=== PATIENT | male | born 1960 | race Caucasian/White ===

== ENCOUNTER 2019-12-31 10:55 | Inpatient (IN) ==
[2019-12-31] MEDS ORDERED: SODIUM CHLORIDE 0.9% 1000ML 1,000 ML IV SCH (11:15)
--- NOTE | 2019-12-31 11:32 | Emergency Department Note ---
History of Present Illness General Chief complaint: Abdominal Pain Stated complaint: STOMACH PAIN Time Seen by Provider: 12/31/19 11:03 History of Present Illness Maximum Pain Intensity: 5 This is a 59-year-old male that presents to the emergency department via [employer] operations staff officer escort from local [facility] where he currently resides with complaints of "abdominal pain". The patient states this past Tuesday he began with abdominal discomfort on the right side. He notes that he had associated flatus. No trauma or injury. He notes that his urine was quite dark at that time. He then was seen at the medical department/[facility]. He notes he was hydrated but the pain has persisted in the right side of the abdomen since that time. He notes a history of kidney stones but this feels quite different. No fevers or chills. Overall discomfort is a 5/10. Prior to arrival he did receive that he believes to be IM Toradol. He notes history of hernia repair. He denies any other pertinent past medical history, surgeries or allergies. Home Medications Home Medications Medication Instructions Recorded Confirmed Type duloxetine [Cymbalta] 60 mg PO DAILY 12/31/19 12/31/19 History Allergies Allergy/AdvReac Type Severity Reaction Status Date / Time No Known Allergies Allergy Unverified 12/31/19 13:03 Past Med/Surg History Medical History Kidney stones Neuropathy Surgical History H/O inguinal hernia repair H/O lithotripsy Family History Mother Diabetes Social History Preferred Language: Slovak Communication Ability: Effective Beliefs That Will Affect Care: None marital status: Single Current Living Situation: Other Current Living Situation Comment: [facility] Other Information That Helps Us Care for You: No Feels Safe at Home: Yes Safety Concerns: Feels Safe At This Time Smoking Status: Former smoker Age Quit Using Tobacco: 44 ; packs per day: 1 ; Years Smoked: 20 ; Hx Alcohol Use: No Hx Substance Use: No Physical Exam Vital Signs Vital Signs - 24 hr 12/31/19 11:00 12/31/19 11:30 12/31/19 12:00 Temperature 36.7 C Temperature Source Oral Pulse Rate 98 H 87 69 Pulse Rate from SpO2 Sensor 85 70 Pulse Rhythm Regular Pulse Strength Normal Respiratory Rate 16 20 20 Respiratory Effort / Characteristics Non-Labored Respiratory Depth Normal Respiratory Pattern Regular Blood Pressure 125/86 130/89 127/88 Blood Pressure Mean 99 96 94 Blood Pressure Position Sitting Pulse Oximetry 95 95 97 Oxygen Delivery Method Room Air Room Air Room Air Sepsis Recent Fever Within 48 Hours No Sepsis Action Taken by Nursing No Action Required 12/31/19 12:25 12/31/19 12:30 12/31/19 13:00 Temperature Temperature Source Pulse Rate 66 71 64 Pulse Rate from SpO2 Sensor 66 71 64 Pulse Rhythm Pulse Strength Respiratory Rate 19 20 19 Respiratory Effort / Characteristics Respiratory Depth Respiratory Pattern Blood Pressure 130/86 132/88 133/89 Blood Pressure Mean 93 95 96 Blood Pressure Position Pulse Oximetry 97 97 97 Oxygen Delivery Method Room Air Room Air Room Air Sepsis Recent Fever Within 48 Hours Sepsis Action Taken by Nursing VITAL SIGNS - Vital signs and nursing notes were reviewed. Stable and afebrile. GENERAL - 59-year-old male appearing his stated age who is in no acute distress. Communicates well with provider and answers questions appropriately. SKIN - Without rashes. HEAD - NC/AT. EYES - PERRL with EOMI bilaterally. Sclera anicteric. EARS - No deformities of external structures noted on gross examination bilaterally. NOSE - Midline and without cyanosis. No epistaxis or purulent drainage noted. MOUTH/OROPHARYNX - Without perioral cyanosis. NECK - Neck with FROM. Supple to palpation. No lymphadenopathy noted. No nuchal rigidity. LUNGS - Chest wall symmetric without accessory muscle use, intercostals retractions, or central cyanosis. Normal vesicular breath sounds CTA B/L. No wheezes, rales, or rhonchi appreciated. CARDIAC - RRR with S1/S2. No murmur, rubs, or gallops appreciated. ABDOMEN - Abdominal contour normal without pulsations or visible masses. BS normoactive all four quadrants. No palpable masses, hepatosplenomegaly, or ascites noted. RUQ/R flank TTP just inferior to right lateral rib region. EXTREMITIES - No clubbing or peripheral cyanosis. No pretibial edema present. +5/5 strength noted in UE/LE bilaterally. NEUROLOGIC - Cranial nerves II through XII grossly intact. PSYCH - A&O, and cooperates fully with examiner. Pt is very pleasant and inte racts well with examiner. Course Administered Medications Heparin Sodium (Porcine) (Heparin Sodium (Porcine)) 5,000 units SQ Q8 CHACHA Stop: 01/30/20 15:59 Last Admin: 12/31/19 17:30 Dose: 5,000 units Documented by: [id number] Cosigned by: [id number] Potassium Chloride/Dextrose/Sod Cl (D5nss + 20meq Kcl) 20 meq in 1,000 mls @ 125 mls/hr IV .Q8H CHACHA Stop: 01/30/20 13:59 Last Admin: 12/31/19 17:30 Dose: 125 mls/hr Documented by: [id number] Cefoxitin Sodium 2,000 mg/ (Dextrose) 60 mls @ 100 mls/hr IV Q6H CHACHA Stop: 01/10/20 17:59 Last Infusion: 12/31/19 18:23 Dose: 0 mls/hr Documented by: [id number] Admin: 12/31/19 17:30 Dose: 100 mls/hr Documented by: [id number] Discontinued Medications Sodium Chloride (Nss 1000ml) 1,000 mls @ 999 mls/hr IV .Q1H1M CHACHA Stop: 12/31/19 12:15 Last Infusion: 12/31/19 12:45 Dose: 0 mls/hr Documented by: [id number] Admin: 12/31/19 11:26 Dose: 999 mls/hr Documented by: [id number] Ioversol (Optiray 320 100ml) 94 ml IV ONCE PRN PRN Reason: Interaction Checking Stop: 01/04/20 12:20 Last Admin: 12/31/19 12:22 Dose: 94 ml Documented by: [id number] Medical Decision Making Laboratory Data Result diagrams: 12/31/19 11:20 12/31/19 11:20 Lab Results 12/31/19 12/31/19 12/31/19 Range/Units 11:20 11:20 11:20 WBC 9.30 (4.8-10.8) K/uL RBC 5.06 (4.7-6.1) M/uL Hgb 16.2 (14.0-18.0) g/dL Hct 46.0 (42-52) % MCV 90.9 (80-100) fL MCH 32.0 (25-34) pg MCHC 35.2 (32-36) g/dL RDW Std Deviation 42.9 (36.4-46.3) fL RDW Coeff of Mc 13.0 (11.5-14.5) % Plt Count 163 (130-400) K/uL MPV 10.7 H (7.4-10.4) fL Immature Gran % (Auto) 0.3 % Neut % (Auto) 76.3 % Lymph % (Auto) 11.2 % [place] % (Auto) 10.2 % Eos % (Auto) 1.9 % Baso % (Auto) 0.1 % Immature Gran # (Auto) 0.03 H (0.00-0.02) K/uL Neut # (Auto) 7.09 H (1.4-6.5) K/uL Lymph # (Auto) 1.04 L (1.2-3.4) K/uL [place] # (Auto) 0.95 H (0.11-0.59) K/uL Eos # (Auto) 0.18 (0-0.5) K/uL Baso # (Auto) 0.01 (0-0.2) K/uL Sodium 135 L (136-145) mmol/L Potassium 4.2 (3.5-5.1) mmol/L Chloride 104 (98-107) mmol/L Carbon Dioxide 26 (21-32) mmol/L Anion Gap 5.0 (3-11) BUN 11 (7-18) mg/dl Creatinine 0.95 (0.6-1.4) mg/dl Est Cr Clr Drug Dosing 94.6 ml/min Est GFR ( Amer) 101.1 Est GFR (Non-Af Amer) 87.3 BUN/Creatinine Ratio 12.1 (10-20) Glucose 100 H (70-99) mg/dl Calcium 8.9 (8.5-10.1) mg/dl Magnesium 2.3 (1.8-2.4) mg/dl Ferritin (8-388) ng/ml Total Bilirubin 1.1 H (0.2-1) mg/dl AST 54 H (15-37) U/L ALT 122 H (12-78) U/L Alkaline Phosphatase 71 (45-117) U/L Total Creatine Kinase 717 H (39-308) U/L Troponin I (0-0.045) ng/ml C-Reactive Protein (0-0.29) mg/dl Total Protein 7.9 (6.4-8.2) gm/dl Albumin 3.5 (3.4-5.0) gm/dl Globulin 4.4 H (2.5-4.0) gm/dl Albumin/Globulin Ratio 0.8 L (0.9-2) Lipase 117 (73-393) U/L Urine Color Urine Appearance (Clear) Urine pH (4.5-7.5) Ur Specific [place] (1.000-1.030) Urine Protein (Negative) Urine Glucose (UA) (Negative) Urine Ketones (Negative) Urine Blood (Negative) Urine Nitrite (Negative) Urine Bilirubin (Negative) Urine Urobilinogen (Negative) Ur Leukocyte Esterase (Negative) Hep Bs Antigen Neg (Neg) 12/31/19 12/31/19 12/31/19 Range/Units 11:20 11:20 11:24 WBC (4.8-10.8) K/uL RBC (4.7-6.1) M/uL Hgb (14.0-18.0) g/dL Hct (42-52) % MCV (80-100) fL MCH (25-34) pg MCHC (32-36) g/dL RDW Std Deviation (36.4-46.3) fL RDW Coeff of Mc (11.5-14.5) % Plt Count (130-400) K/uL MPV (7.4-10.4) fL Immature Gran % (Auto) % Neut % (Auto) % Lymph % (Auto) % [place] % (Auto) % Eos % (Auto) % Baso % (Auto) % Immature Gran # (Auto) (0.00-0.02) K/uL Neut # (Auto) (1.4-6.5) K/uL Lymph # (Auto) (1.2-3.4) K/uL [place] # (Auto) (0.11-0.59) K/uL Eos # (Auto) (0-0.5) K/uL Baso # (Auto) (0-0.2) K/uL Sodium (136-145) mmol/L Potassium (3.5-5.1) mmol/L Chloride (98-107) mmol/L Carbon Dioxide (21-32) mmol/L Anion Gap (3-11) BUN (7-18) mg/dl Creatinine (0.6-1.4) mg/dl Est Cr Clr Drug Dosing ml/min Est GFR ( Amer) Est GFR (Non-Af Amer) BUN/Creatinine Ratio (10-20) Glucose (70-99) mg/dl Calcium (8.5-10.1) mg/dl Magnesium (1.8-2.4) mg/dl Ferritin 184.6 (8-388) ng/ml Total Bilirubin (0.2-1) mg/dl AST (15-37) U/L ALT (12-78) U/L Alkaline Phosphatase (45-117) U/L Total Creatine Kinase (39-308) U/L Troponin I 0.019 (0-0.045) ng/ml C-Reactive Protein 8.16 H (0-0.29) mg/dl Total Protein (6.4-8.2) gm/dl Albumin (3.4-5.0) gm/dl Globulin (2.5-4.0) gm/dl Albumin/Globulin Ratio (0.9-2) Lipase (73-393) U/L Urine Color Yellow Urine Appearance Clear (Clear) Urine pH 6.0 (4.5-7.5) Ur Specific [place] 1.018 (1.000-1.030) Urine Protein Negative (Negative) Urine Glucose (UA) Negative (Negative) Urine Ketones Trace H (Negative) Urine Blood Negative (Negative) Urine Nitrite Negative (Negative) Urine Bilirubin Negative (Negative) Urine Urobilinogen Negative (Negative) Ur Leukocyte Esterase Negative (Negative) Hep Bs Antigen (Neg) Imaging Data Radiologist's Impression: CT abd pelvis IV con only CLINICAL HISTORY: 59 years-old Male presenting with generalized abdominal pain, dark urine. TECHNIQUE: Multidetector CT of the abdomen and pelvis was performed after the administration of intravenous contrast. IV contrast: 94 mL of Optiray 320. One or more dose lowering techniques were used consistent with the principles of ALARA (as low as reasonably achievable), including automatic exposure control, mA or kV adjustment to individual patient size, and/or use of iterative reconstruction. COMPARISON: None. CT DOSE (mGy.cm): The estimated cumulative dose is 792.73 mGycm. FINDINGS: Instrument And Control Technician topogram: Unremarkable. Lung bases: Normal heart size. No pericardial or pleural effusion. No focal infiltrate or nodule at the lung bases. Liver: Normal morphology. Heterogeneous parenchymal enhancement with periportal edema. Patent hepatic vasculature. Biliary: No intrahepatic or extrahepatic biliary ductal dilatation. Biliary biliary fat infiltration at the level of the liver hilum and along the portal triad. No abnormal gallbladder distention, however, mild pericholecystic fat infiltration. Pancreas: Normal. Spleen: Normal. Adrenal glands: Normal. Kidneys and ureters: Several renal cysts noted, including on the left a 3 cm cyst with focal limited thin mural calcification consistent with a minimally complex cyst. Punctate nonobstructing left renal calculus. No hydronephrosis. Ureters nondistended. Bladder: Incompletely evaluated secondary to underdistention. No bladder calculi . Pelvic organs: Prostate and seminal vesicles normal. Bowel: Mild diverticulosis of the proximal to mid sigmoid colon without wall thickening or pericolonic inflammatory change. The appendix is normal. No bowel obstruction. Fluid noted along the descending portion of the duodenum. Peritoneal cavity: Trace fluid in the pelvis. Trace retroperitoneal fluid as mentioned in the periduodenal region. No free intraperitoneal gas. Lymph nodes: No enlarged lymph nodes in the abdomen or pelvis. Vasculature: Aorta and IVC patent and normal in caliber. Abdominal wall: Normal. Musculoskeletal: Bilateral pars defects of L5. No significant anterolisthesis. IMPRESSION: 1. Heterogeneous parenchymal enhancement of the liver with periportal edema and evidence of inflammatory changes or edema at the liver hilum. These findings could relate to the presence of underlying hepatitis or aggressive volume resuscitation. Correlate with liver function tests. 2. Fluid along the portal triad and periduodenal region may also relate to the above-mentioned diagnoses. Alternative etiologies include cholangitis or duodenitis. 3. Mild diverticulosis coli. No evidence of diverticulitis. 4. Nonobstructing punctate left renal calculus. No hydronephrosis. ACT 112: Negative or not required by law. Electronically signed by: Gil Deluna M.D. 12/31/2019 12:34 PM MDM Narrative Patient was seen and evaluated as above in room B3. Review was performed of nursing notes and vital signs. After obtaining a thorough history and physical examination the above work up was performed. He presents to us today with right upper quadrant/right sided flank pain with associated vomiting a few days ago. He presents from [facility]. The patient is nontoxic on examination and yields stable vital signs. With this presentation liver/gallbladder etiologies are favored. There is no leukocytosis or concerning anemia. There is mild transaminitis with associated T bili of 1.1. Urinalysis does not suggest infection. Hepatitis panel pending. A CT scan was obtained of the abdomen and there is heterogeneous parenchymal enhancement of the liver with periportal edema and evidence of inflammatory changes or edema at the liver hilum. This could suggest underlying hepatitis versus aggressive hydration but he only received 1 L of fluid here therefore do not suspect aggressive hydration. There is also note of fluid along the portal triad and periduodenal region which may be related to hepatitis versus hydration versus cholangitis or duodenitis. Given the patient's presentation I felt reasonable to discuss the case with the [facility] where he was receiving medical care. I discussed the case with Dr. Kirkpatrick. It was felt that further evaluation and management in the inpatient setting would be warranted. I believe this is reasonable. Case discussed with the hospitalist. Please refer to further documentation regarding his stay. While in the department, I personally reevaluated the patient several times and each time the patient was found to be resting comfortably. The patient was educated upon management, educated upon todays findings/results, and discussed benefit versus risk of admission and he was amenable to staying. Case was discussed with the attending physician. GCS: 15 In the evaluation and treatment of this patient, the following differential diagnoses were considered: ASC, NH, Pneumonia, GERD, Cholecystitis, Ascending Cholangitis, Cholydocholithiasis, Bowel Obstruction, PE, Amongst Others. Impression & Plan Right upper quadrant abdominal pain, Transaminitis Discharge Plan Visit Data *Final* Discharge Date/Time: 12/31/19 14:59 Chief Complaint: Abdominal Pain Stated Complaint: STOMACH PAIN ED Provider: Fili Vega ED Midlevel Provider: Valerio Lemon Discharge Problem: Right upper quadrant abdominal pain, Transaminitis Patient Disposition: Admitted As Inpatient Condition: Good Discharge Instructions Interventions: ED Discharge Assessment Last Done: 12/31/19 14:59
[2019-12-31 11:36] LABS: Basophils # (auto) 0.01 K/uL (0-0.2); Basophils % (auto) 0.1 %; Eosinophils # (auto) 0.18 K/uL (0-0.5); Eosinophils % (auto) 1.9 %; Hemoglobin 16.2 g/dL (14.0-18.0); Immature Granulocytes # (auto) 0.03 K/uL (0.00-0.02); Immature Granulocytes % (auto) 0.3 %; Lymphocytes # (auto) 1.04 K/uL (1.2-3.4); Lymphocytes % (auto) 11.2 %; Mean Corpuscular Hgb Conc 35.2 g/dL (32-36); Mean Corpuscular Volume 90.9 fL (80-100); Mean Platelet Volume 10.7 fL (7.4-10.4); Monocytes # (auto) 0.95 K/uL (0.11-0.59); Monocytes % (auto) 10.2 %; Neutrophils # (auto) 7.09 K/uL (1.4-6.5); Neutrophils % (auto) 76.3 %; Platelet Count 163 K/uL (130-400); RDW Standard Deviation 42.9 fL (36.4-46.3); Red Blood Count 5.06 M/uL (4.7-6.1)
[2019-12-31 11:37] LABS: Appearance Urine Clear (Clear); Bilirubin Urine Negative (Negative); Blood Urine Negative (Negative); Color Urine Yellow; Glucose Urine UA Negative (Negative); Ketones Urine Trace (Negative); Leukocyte Esterase Urine Negative (Negative); Nitrite Urine Negative (Negative); Protein Urine Negative (Negative); Specific Gravity Urine 1.018 (1.000-1.030); Urobilinogen Urine Negative (Negative)
[2019-12-31 11:53] LABS: Albumin Level 3.5 gm/dl (3.4-5.0); BUN Creatinine Ratio 12.1 (10-20); Calcium 8.9 mg/dl (8.5-10.1); Creatinine Clr Calc Pharmacy 94.6 ml/min; Est GFR (African American) 101.1; Est GFR (Non-African American) 87.3; Magnesium 2.3 mg/dl (1.8-2.4); Potassium 4.2 mmol/L (3.5-5.1)
[2019-12-31 11:55] LABS: Albumin Globulin Ratio 0.8 (0.9-2); Bilirubin,Total 1.1 mg/dl (0.2-1); Globulin 4.4 gm/dl (2.5-4.0); Total Protein 7.9 gm/dl (6.4-8.2)
[2019-12-31] MEDS ORDERED: IOVERSOL 100ml IV PRN (12:21)
--- NOTE | 2019-12-31 12:35 | CT Scan Report ---
CT abd pelvis IV con only CLINICAL HISTORY: 59 years-old Male presenting with generalized abdominal pain, dark urine. TECHNIQUE: Multidetector CT of the abdomen and pelvis was performed after the administration of intra venous contrast. IV contrast: 94 mL of Optiray 320. One or more dose lowering techniques were used co nsistent with the principles of ALARA (as low as reasonably achievable), including automatic exposure control, mA or kV adjustment to individual patient size, and/or use of iterative reconstruction. COMPARISON: None. CT DOSE (mGy.cm): The estimated cumulative dose is 792.73 mGycm. FINDINGS: Molded Goods Operator topogram: Unremarkable. Lung bases: Normal heart size. No pericardial or pleural effusion. No focal infiltrate or nodule at t he lung bases. Liver: Normal morphology. Heterogeneous parenchymal enhancement with periportal edema. Patent hepatic vasculature. Biliary: No intrahepatic or extrahepatic biliary ductal dilatation. Biliary biliary fat infiltration at the level of the liver hilum and along the portal triad. No abnormal gallbladder distention, howev er, mild pericholecystic fat infiltration. Pancreas: Normal. Spleen: Normal. Adrenal glands: Normal. Kidneys and ureters: Several renal cysts noted, including on the left a 3 cm cyst with focal limited thin mural calcification consistent with a minimally complex cyst. Punctate nonobstructing left renal calculus. No hydronephrosis. Ureters nondistended. Bladder: Incompletely evaluated secondary to underdistention. No bladder calculi. Pelvic organs: Prostate and seminal vesicles normal. Bowel: Mild diverticulosis of the proximal to mid sigmoid colon without wall thickening or pericoloni c inflammatory change. The appendix is normal. No bowel obstruction. Fluid noted along the descending portion of the duodenum. Peritoneal cavity: Trace fluid in the pelvis. Trace retroperitoneal fluid as mentioned in the periduo denal region. No free intraperitoneal gas. Lymph nodes: No enlarged lymph nodes in the abdomen or pelvis. Vasculature: Aorta and IVC patent and normal in caliber. Abdominal wall: Normal. Musculoskeletal: Bilateral pars defects of L5. No significant anterolisthesis. IMPRESSION: 1. Heterogeneous parenchymal enhancement of the liver with periportal edema and evidence of inflamma tory changes or edema at the liver hilum. These findings could relate to the presence of underlying h epatitis or aggressive volume resuscitation. Correlate with liver function tests. 2. Fluid along the portal triad and periduodenal region may also relate to the above-mentioned diagn oses. Alternative etiologies include cholangitis or duodenitis. 3. Mild diverticulosis coli. No evidence of diverticulitis. 4. Nonobstructing punctate left renal calculus. No hydronephrosis. ACT 112: Negative or not required by law. Electronically signed by: Gil Deluna M.D. 12/31/2019 12:34 PM
--- NOTE | 2019-12-31 14:00 | History & Physical Report ---
Date of Service December 31, 2019 Assessment & Plan (1) RUQ abdominal pain: RUQ abd pain, abnormal LFTs, post-prandial symptoms, and gall bladder u/s findings (I ordered RUQ us after my admission assessment) are all concerning for biliary etiology for his presentation. Will keep NPO, provide IV fluids, and have [place] [facility] [place] consult. Acute hepatitis profile was sent in ER and is currently pending. Repeat labs in am including LFTs. Defer antibiotic selection to general surgery to cover for acute cholecystitis. (2) Abnormal LFTs: See discussion above. I believe abnormal LFTs are likely due to acute cholecystitis. Repeat LFTs in am. If t. bili, alk phos, etc rise consider intra-op cholangiogram to rule out choledocholithiasis vs MRCP. Acute hepatitis profile is pending. Rarely can cymbalta cause abnormal LFTs - hold as precautionary measure. (3) Neuropathy: Hold cymbalta for now. (4) DVT prophylaxis: Due to immobility from handcuff/ankle cuffs will provide heparin 5000 TID. GI proph - pepcid IV bid. IVF - D5NS w/ KCL at 125 cc/hr. Pain control - morphine prn. History of Present Illness Chief Complaint: abdominal pain Primary Care Provider: [facility] 59yo male - [facility] inmate - with h/o kidney stones and neuropathy who presents with 1 week of RUQ and epigastric abdominal pain. Initially pain was intermittent and occasionally post-prandial. Pain in the last 24 hours is now constant. Had 1 episode of nonbilious emesis a few days ago. He has been able to continue eating although this makes the pain worse. Some pain has radiated to the flank on the right and back. No chest pain. No dyspnea or cough. No diarrhea. No blood per rectum. Denies fevers, chills or myalgias or obvious sick contacts. Allergies Allergy/AdvReac Type Severity Reaction Status Date / Time No Known Allergies Allergy Unverified 12/31/19 13:03 Home Medications Home Medications Medication Instructions Recorded Confirmed Type duloxetine [Cymbalta] 60 mg PO DAILY 12/31/19 12/31/19 History Past Med/Surg History Medical History Kidney stones Neuropathy Surgical History H/O inguinal hernia repair H/O lithotripsy Family History Mother Diabetes Social History Preferred Language: Italian Communication Ability: Effective Beliefs That Will Affect Care: None marital status: Single Current Living Situation: Other Current Living Situation Comment: [facility] Other Information That Helps Us Care for You: No Feels Safe at Home: Yes Safety Concerns: Feels Safe At This Time Smoking Status: Former smoker Age Quit Using Tobacco: 44 ; packs per day: 1 ; Years Smoked: 20 ; Hx Alcohol Use: No Hx Substance Use: No Review of Systems Constitutional: no fever, no chills, no fatigue and no anorexia Eyes: no worsening vision Ear, Nose, Mouth, Throat: no nasal congestion and no sore throat Respiratory: no cough, no chest congestion and no dyspnea Cardiovascular: no chest pain Gastrointestinal: as per Subjective / HPI, + abdominal pain, + nausea and + vomiting; no constipation, no diarrhea/loose stools and no blood in stools Genitourinary: no dysuria Musculoskeletal: as per Subjective / HPI and + back pain; no joint pain Integumentary: no rash Neurologic: no loss of sensation Psychiatric: no anxiety Endocrine: denies diabetes Hematologic / Lymphatic: no easy bleeding Physical Exam Constitutional: well developed and well nourished; no acute distress and no altered mental status Eyes: + anicteric sclerae and PERRL ENMT: Mouth: no oropharynx abnormality and no oral mucosal abnormality Neck: trachea midline, no thyromegaly Respiratory: no respiratory distress Auscultation: + rales (RLL); no wheezes Cardiovascular: Rate/Rhythm: regular rate and regular rhythm Heart Sounds: normal S1 and normal S2; no murmur Vessels: posterior tibial pulses present and dorsalis pedis pulses present; no JVD Extremities: no edema Gastrointestinal (Abdomen): Inspection/Auscultation: normal bowel sounds; abdomen not distended Percussion/Palpation: + abdomen tender (RUQ with deep palpation) and abdomen soft; no guarding and no hepatosplenomegaly Musculoskeletal: no cyanosis or clubbing, extremities motor strength 5/5 Skin: no rashes, warm and dry Neurologic: deep tendon reflexes 2+ bilaterally and moves all extremities; no focal motor deficits Psychiatric: A+Ox3, euthymic affect Lymphatic: no cervical lymphadenopathy Results & Data Results & Data ([facility]) Vital Signs (Past 12 Hours) Vital Signs Temp Pulse Resp BP Pulse Ox 12/31/19 13:00 64 19 133/89 97 12/31/19 12:30 71 20 132/88 97 12/31/19 12:25 66 19 130/86 97 12/31/19 12:00 69 20 127/88 97 12/31/19 11:30 87 20 130/89 95 12/31/19 11:00 36.7 C 98 H 16 125/86 95 Laboratory Results Laboratory Results - last 24 hr 12/31/19 12/31/19 12/31/19 11:20 11:20 11:20 WBC 9.30 RBC 5.06 Hgb 16.2 Hct 46.0 MCV 90.9 MCH 32.0 MCHC 35.2 RDW Std Deviation 42.9 RDW Coeff of Mc 13.0 Plt Count 163 MPV 10.7 H Immature Gran % (Auto) 0.3 Neut % (Auto) 76.3 Lymph % (Auto) 11.2 [place] % (Auto) 10.2 Eos % (Auto) 1.9 Baso % (Auto) 0.1 Immature Gran # (Auto) 0.03 H Neut # (Auto) 7.09 H Lymph # (Auto) 1.04 L [place] # (Auto) 0.95 H Eos # (Auto) 0.18 Baso # (Auto) 0.01 Sodium 135 L Potassium 4.2 Chloride 104 Carbon Dioxide 26 Anion Gap 5.0 BUN 11 Creatinine 0.95 Est Cr Clr Drug Dosing 94.6 Est GFR ( Amer) 101.1 Est GFR (Non-Af Amer) 87.3 BUN/Creatinine Ratio 12.1 Glucose 100 H Calcium 8.9 Magnesium 2.3 Ferritin Total Bilirubin 1.1 H AST 54 H ALT 122 H Alkaline Phosphatase 71 Total Creatine Kinase 717 H Troponin I C-Reactive Protein Total Protein 7.9 Albumin 3.5 Globulin 4.4 H Albumin/Globulin Ratio 0.8 L Lipase 117 Urine Color Urine Appearance Urine pH Ur Specific [place] Urine Protein Urine Glucose (UA) Urine Ketones Urine Blood Urine Nitrite Urine Bilirubin Urine Urobilinogen Ur Leukocyte Esterase Hepatitis A IgM Ab Hep Bs Antigen Neg Hep B Core IgM Ab Hepatitis C Ab (EIA) Hep C Ab Signal/Cutoff 12/31/19 12/31/19 12/31/19 11:20 11:20 11:20 WBC RBC Hgb Hct MCV MCH MCHC RDW Std Deviation RDW Coeff of Mc Plt Count MPV Immature Gran % (Auto) Neut % (Auto) Lymph % (Auto) [place] % (Auto) Eos % (Auto) Baso % (Auto) Immature Gran # (Auto) Neut # (Auto) Lymph # (Auto) [place] # (Auto) Eos # (Auto) Baso # (Auto) Sodium Potassium Chloride Carbon Dioxide Anion Gap BUN Creatinine Est Cr Clr Drug Dosing Est GFR ( Amer) Est GFR (Non-Af Amer) BUN/Creatinine Ratio Glucose Calcium Magnesium Ferritin 184.6 Total Bilirubin AST ALT Alkaline Phosphatase Total Creatine Kinase Troponin I 0.019 C-Reactive Protein 8.16 H Total Protein Albumin Globulin Albumin/Globulin Ratio Lipase Urine Color Urine Appearance Urine pH Ur Specific [place] Urine Protein Urine Glucose (UA) Urine Ketones Urine Blood Urine Nitrite Urine Bilirubin Urine Urobilinogen Ur Leukocyte Esterase Hepatitis A IgM Ab Pending Hep Bs Antigen Hep B Core IgM Ab Pending Hepatitis C Ab (EIA) Pending Hep C Ab Signal/Cutoff Pending 12/31/19 11:24 WBC RBC Hgb Hct MCV MCH MCHC RDW Std Deviation RDW Coeff of Mc Plt Count MPV Immature Gran % (Auto) Neut % (Auto) Lymph % (Auto) [place] % (Auto) Eos % (Auto) Baso % (Auto) Immature Gran # (Auto) Neut # (Auto) Lymph # (Auto) [place] # (Auto) Eos # (Auto) Baso # (Auto) Sodium Potassium Chloride Carbon Dioxide Anion Gap BUN Creatinine Est Cr Clr Drug Dosing Est GFR ( Amer) Est GFR (Non-Af Amer) BUN/Creatinine Ratio Glucose Calcium Magnesium Ferritin Total Bilirubin AST ALT Alkaline Phosphatase Total Creatine Kinase Troponin I C-Reactive Protein Total Protein Albumin Globulin Albumin/Globulin Ratio Lipase Urine Color Yellow Urine Appearance Clear Urine pH 6.0 Ur Specific [place] 1.018 Urine Protein Negative Urine Glucose (UA) Negative Urine Ketones Trace H Urine Blood Negative Urine Nitrite Negative Urine Bilirubin Negative Urine Urobilinogen Negative Ur Leukocyte Esterase Negative Hepatitis A IgM Ab Hep Bs Antigen Hep B Core IgM Ab Hepatitis C Ab (EIA) Hep C Ab Signal/Cutoff Diagnostic Findings CT abd/pelvis - IMPRESSION: 1. Heterogeneous parenchymal enhancement of the liver with periportal edema and evidence of inflammatory changes or edema at the liver hilum. These findings could relate to the presence of underlying hepatitis or aggressive volume resuscitation. Correlate with liver function tests. 2. Fluid along the portal triad and periduodenal region may also relate to the above-mentioned diagnoses. Alternative etiologies include cholangitis or duodenitis. 3. Mild diverticulosis coli. No evidence of diverticulitis. 4. Nonobstructing punctate left renal calculus. No hydronephrosis. EKG - my reading - NSR, left axis deviation, no ST changes Code Status & VTE Plan Code Status full VTE Prophylaxis Plan VTE Prophylaxis will be ordered: Yes PG Care Time/CCT Total # of Minutes Spent Total Time Spent with Patient: Total time spent is greater than 50% in coordination of care (as documented) at patient's floor/unit and/or counseling patient: Coding Level of Care Code 48635 OBS Care - Level 2 Diagnoses RUQ abdominal pain R10.11 Abnormal LFTs R94.5 Neuropathy G62.9 DVT prophylaxis Z29.9
[2019-12-31 14:44] LABS: C Reactive Protein 8.16 mg/dl (0-0.29); Ferritin 184.6 ng/ml (8-388)
--- NOTE | 2019-12-31 15:21 | Ultrasound Report ---
US gallbladder CLINICAL HISTORY: 59 years-old Male presenting with abnormal LFTs, RUQ abd pain. TECHNIQUE: Real-time grayscale and limited color Doppler ultrasound imaging of the abdomen limited to the right upper quadrant was performed. COMPARISON: CT from 12/31/2019 performed earlier today. FINDINGS: Pancreas: Largely obscured due to overlying bowel gas. Liver: Mildly hyperechogenic parenchyma, although the right hemidiaphragm remains visible, likely ind icating mild steatosis. The liver measures 20.9 cm in maximal sagittal dimension. No sonographic evid ence of hepatic mass. Main portal vein patent with normal directional flow. Biliary: No intrahepatic biliary ductal dilatation. Common bile duct measures up to 4 mm in diameter. Gallbladder: Gallbladder wall thickening. The gallbladder is distended with echogenic material compri sing sludge and gallstones. There is no pathologic distention of the gallbladder. Sonographic Colin' s sign negative. Right kidney: Upper pole cysts noted. No hydronephrosis. Ascites: None. Other: None. IMPRESSION: 1. Gallbladder wall thickening with extensive gallbladder sludge and gallstones. Equivocal findings for cholecystitis. Wall thickening may be secondary. A secondary etiology would be favored based on f indings on recent CT scan. If there is concern for cholecystitis, HIDA scan could be obtained. 2. Mild hepatic steatosis may be present. ACT 112: Negative or not required by law. Electronically signed by: Gil Deluna M.D. 12/31/2019 3:20 PM
--- NOTE | 2019-12-31 15:31 | XRay Report ---
XR chest 2V PA/lateral CLINICAL HISTORY: 59 years-old Male presenting with RLL rales, chest pain for 5 days. TECHNIQUE: PA and lateral views of the chest were obtained. COMPARISON: None. FINDINGS: Cardiomediastinal silhouette normal. Lungs and pleural spaces clear. Degenerative changes of the thor acic spine. Upper abdomen normal. IMPRESSION: 1. No acute cardiopulmonary disease. ACT 112: Negative or not required by law. Electronically signed by: Gil Deluna M.D. 12/31/2019 3:30 PM
[2019-12-31] MEDS ORDERED: MoRPHine SULFATE 2 MG/ML CARP IV PRN (15:39)
[2019-12-31] MEDS ORDERED: ONDANSETRON INJ 2 MG/ML 2 ML VIAL IV PRN (15:39)
--- NOTE | 2019-12-31 16:27 | Electrocardiogram Report ---
Test Reason : Blood Pressure : / mmHG Vent. Rate : 071 BPM Atrial Rate : 071 BPM P-R Int : 186 ms QRS Dur : 098 ms QT Int : 400 ms P-R-T Axes : -10 -22 020 degrees QTc Int : 434 ms Normal sinus rhythm Normal ECG No previous ECGs available Confirmed by River Rogers ([id number]) on 12/31/2019 4:26:34 PM Referred By: [facility] Confirmed By:River Rogers
--- NOTE | 2019-12-31 16:44 | Surgery Consultation ---
Date of Consultation December 31, 2019 Assessment & Plan (1) Right upper quadrant abdominal pain: Cholelithiasis, cholecystitis. Will start on IV abx and plan for laparoscopic cholecystectomy tomorrow. Also, slight elevation of bili/AST/ALT with normal alk phos and lipase. Repeat labs in AM, may consider cholangiogram. Dr Davis- examined pt in room- agree with above pt with acute cholecystitis- for lap cholecystectomy tomorrow IV atbx History of Present Illness Attending Physician: Donnie Craig History of Present Illness 59 y/o male inmate with several years intermittent postprandial pain RUQ now with more persistent symptoms for the past week. Had vomited initially, has been able to tolerate some food the past few days. Has had inguinal hernia repairs, no other abdominal surgery. Allergies Allergy/AdvReac Type Severity Reaction Status Date / Time No Known Allergies Allergy Unverified 12/31/19 13:03 Home Medications Home Medications Medication Instructions Recorded Confirmed Type duloxetine [Cymbalta] 60 mg PO DAILY 12/31/19 12/31/19 History Patient History Medical History Kidney stones Neuropathy Surgical History H/O inguinal hernia repair H/O lithotripsy Family History Mother Diabetes Social History Preferred Language: Scottish Communication Ability: Effective Beliefs That Will Affect Care: None marital status: Single Current Living Situation: [facility] Other Information That Helps Us Care for You: No Feels Safe at Home: Yes Safety Concerns: Feels Safe At This Time Smoking Status: Former smoker Age Quit Using Tobacco: 44 ; packs per day: 1 ; Years Smoked: 20 ; Hx Alcohol Use: No Hx Substance Use: No Review of Systems Constitutional: no fever and no chills Gastrointestinal: + abdominal pain, + nausea and + vomiting Physical Exam Constitutional: WD/WN, vitals as above Respiratory: normal respiratory effort and + respiratory distress Cardiovascular: Rate/Rhythm: regular rate Gastrointestinal (Abdomen): Inspection/Auscultation: abdomen not distended Percussion/Palpation: + abdomen tender (mild RUQ) and abdomen soft Results & Data Vital Signs (Past 12 Hours) Vital Signs Temp Pulse Pulse Resp BP BP Pulse Ox 12/31/19 15:43 36.7 C 66 18 135/84 97 12/31/19 14:59 66 18 132/86 97 12/31/19 14:43 66 18 132/86 97 12/31/19 13:00 64 19 133/89 97 12/31/19 12:30 71 20 132/88 97 12/31/19 12:25 66 19 130/86 97 12/31/19 12:00 69 20 127/88 97 12/31/19 11:30 87 20 130/89 95 12/31/19 11:00 36.7 C 98 H 16 125/86 95 PG Care Time/CCT Total # of Minutes Spent Total Time Spent with Patient: Total time spent is greater than 50% in coordination of care (as documented) at patient's floor/unit and/or counseling patient: Coding Level of Care Code 97200 Inpt Consult Level 3 Diagnoses Right upper quadrant abdominal pain R10.11
[2019-12-31] MEDS: D5NSS + 20MEQ KCL 20 MEQ/1,000 ML BAG IV SCH (17:30)
[2019-12-31] MEDS: cefOXitin 2,000 MG in DEXTROSE 5% 50 ML IV SCH (17:30)
[2019-12-31] MEDS: HEPARIN SOD 5,000 UNIT/0.5 ML VIAL SQ SCH ×2 (17:30→22:29)
[2019-12-31] MEDS: FAMOTIDINE 20 MG in SYRINGE 3 ML IV SCH (20:31)
[2020-01-01] MEDS: cefOXitin 2,000 MG in DEXTROSE 5% 50 ML IV SCH ×3 (00:12→15:19)
[2020-01-01] MEDS: D5NSS + 20MEQ KCL 20 MEQ/1,000 ML BAG IV SCH ×3 (00:12→15:19)
[2020-01-01] MEDS: HEPARIN SOD 5,000 UNIT/0.5 ML VIAL SQ SCH ×2 (02:11→15:20)
[2020-01-01 04:50] LABS: Basophils # (auto) 0.01 K/uL (0-0.2); Basophils % (auto) 0.1 %; Eosinophils # (auto) 0.26 K/uL (0-0.5); Eosinophils % (auto) 3.6 %; Hematocrit (blood only) 39.4 % (42-52); Hemoglobin 13.5 g/dL (14.0-18.0); Immature Granulocytes # (auto) 0.02 K/uL (0.00-0.02); Immature Granulocytes % (auto) 0.3 %; Lymphocytes # (auto) 0.98 K/uL (1.2-3.4); Lymphocytes % (auto) 13.7 %; Mean Corpuscular Hemoglobin 31.5 pg (25-34); Mean Corpuscular Hgb Conc 34.3 g/dL (32-36); Mean Corpuscular Volume 91.8 fL (80-100); Mean Platelet Volume 10.7 fL (7.4-10.4); Monocytes # (auto) 0.79 K/uL (0.11-0.59); Monocytes % (auto) 11.1 %; Neutrophils # (auto) 5.08 K/uL (1.4-6.5); Neutrophils % (auto) 71.2 %; Platelet Count 152 K/uL (130-400); RDW Coefficient of Variation 13.1 % (11.5-14.5); RDW Standard Deviation 43.6 fL (36.4-46.3); Red Blood Count 4.29 M/uL (4.7-6.1); White Blood Count 7.14 K/uL (4.8-10.8)
[2020-01-01 05:11] LABS: Albumin Level 2.7 gm/dl (3.4-5.0); Calcium 8.5 mg/dl (8.5-10.1); Creatinine Clr Calc Pharmacy 98.8 ml/min; Est GFR (African American) 106.5; Est GFR (Non-African American) 91.9; Potassium 4.3 mmol/L (3.5-5.1)
[2020-01-01 05:45] LABS: Albumin Globulin Ratio 0.8 (0.9-2); Bilirubin,Total 0.7 mg/dl (0.2-1); Globulin 3.6 gm/dl (2.5-4.0); Total Protein 6.3 gm/dl (6.4-8.2)
[2020-01-01] MEDS: FAMOTIDINE 20 MG in SYRINGE 3 ML IV SCH (08:17)
--- NOTE | 2020-01-01 09:58 | Anesthesiology Consultation ---
Date of Service January 01, 2020 Assessment & Plan (1) Encounter for pre-operative examination: Chart Review Chart Review: Acceptable Risk for Surgery and Patient NOT seen in Pre Admission Testing Consults Requested none ASA ASA2 Proposed Anesthesia Anesthesia Type: General Risk / Benefits Reviewed With: PT / POA / Parent / Guardian, Accepts Plan and Informed Consent Obtained History Surgery Operation Date: 01/01/20 07:00 Proposed Procedures p Laparoscopic Cholecystectomy - Giovanni Davis MD, FACS Height/Weight Height: 6 ft 1 in Weight: 93.5 kg Allergies Allergy/AdvReac Type Severity Reaction Status Date / Time No Known Allergies Allergy Unverified 12/31/19 13:03 Medications Home Medications Medication Instructions Recorded Confirmed Last Taken duloxetine [Cymbalta] 60 mg PO DAILY 12/31/19 12/31/19 12/31/19 Active Medications Generic Name Dose Route Start Last Admin Trade Name Freq PRN Reason Stop Dose Admin Heparin Sodium (Porcine) 5,000 units 12/31/19 16:00 01/01/20 02:11 Heparin Sodium (Porcine) SQ 01/30/20 15:59 Not Given Q8 CHACHA Potassium Chloride/Dextrose/Sod Cl 20 meq in 1,000 mls @ 125 mls/hr 12/31/19 14:00 01/01/20 08:21 D5nss + 20meq Kcl IV 01/30/20 13:59 125 mls/hr .Q8H CHACHA Administration Famotidine 20 mg/ Syringe 5 mls @ 2.5 mls/min 12/31/19 21:00 01/01/20 08:17 IV 01/30/20 20:59 2.5 mls/min BID CHACHA Administration Cefoxitin Sodium 2,000 mg/ 60 mls @ 100 mls/hr 12/31/19 18:00 01/01/20 05:54 Dextrose IV 01/10/20 17:59 Infused Q6H CHACHA Infusion Morphine Sulfate 2 mg 12/31/19 15:39 12/31/19 22:34 Morphine Sulfate IV 01/14/20 15:38 2 mg Q3H PRN Administration Pain NPO Date Last Intake of Fluids: 12/31/19 Time Last Intake of Fluids: 09:00 Last Intake of Fluids Comment: Yesterday morning. Date Last Intake of Solids: 12/30/19 Time Last Intake of Solids: 17:00 Past Medical History Medical History Kidney stones Neuropathy Exercise / Class Metabolic Activity II 4-5 Yardwork/Stairs/Walk up hill Negative for chest pain or shortness of breath. Past Family History Family History Mother Diabetes Past Surgical History Surgical History H/O inguinal hernia repair H/O lithotripsy Past Anesthesia History No Hx of Anesthesia Complications History of PONV No Hx of PONV and No Hx of Motion Sickness Social History Smoking Status: Former smoker Do You Dip or Chew Tobacco: No Hx Alcohol Use: No Hx Substance Use: No Review of Systems Patient denies active symptoms of GERD. Physical Exam Vital Signs Last Vital Signs Temp 37.4 C 01/01/20 10:26 Pulse 64 01/01/20 10:26 Resp 18 01/01/20 10:26 BP 125/91 01/01/20 10:26 Pulse Ox 96 01/01/20 10:26 Constitutional not obese ENMT Mouth: no TMJ abnormality and oral opening not small Thyromental Distance: > or= 3.5 Finger Breadths Mallampati Class: I Mouth / Teeth: 1. Bridge Neck normal visual inspection; neck extension not limited Respiratory normal respiratory effort Auscultation: lungs clear to auscultation bilaterally Cardiovascular Rate/Rhythm: regular rate and regular rhythm Heart Sounds: no murmur Neurologic moves all extremities Psychiatric Orientation: alert and oriented x 3 Testing Laboratory Results 01/01/20 04:26 01/01/20 04:26 Urine Color Yellow 12/31/19 11:24 Urine Appearance Clear (Clear) 12/31/19 11:24 Urine pH 6.0 (4.5-7.5) 12/31/19 11:24 Ur Specific [place] 1.018 (1.000-1.030) 12/31/19 11:24 Urine Protein Negative (Negative) 12/31/19 11:24 Urine Glucose (UA) Negative (Negative) 12/31/19 11:24 Urine Ketones Trace (Negative) H 12/31/19 11:24 Urine Nitrite Negative (Negative) 12/31/19 11:24 Ur Leukocyte Esterase Negative (Negative) 12/31/19 11:24 Electrocardiogram Date: 12/31/19 Findings: + NSR @ (71)
[2020-01-01] MEDS ORDERED: DEXAMETHASONE SOD INJ 4 MG/ML VIAL ONE (10:08)
[2020-01-01] MEDS ORDERED: GLYCOPYRROLATE 0.2 MG/ML VIAL ONE ×2 (10:08→12:29)
[2020-01-01] MEDS ORDERED: LIDOCAINE HCL 2% 2 ML VIAL/AMP(20MG/ML) INFIL ONE (10:08)
[2020-01-01] MEDS ORDERED: fentaNYL citrate 100 MCG/2 ML VIAL ONE ×2 (10:08→13:14)
[2020-01-01] MEDS ORDERED: ONDANSETRON INJ 2 MG/ML 2 ML VIAL ONE (10:08)
[2020-01-01] MEDS ORDERED: NEOSTIGMINE METHYLSULFATE 5 MG/5 ML SYR ONE (10:08)
[2020-01-01] MEDS ORDERED: PROPOFOL IV EMULSION 10 MG/ML 20 ML VIAL IV ONE (10:08)
[2020-01-01] MEDS ORDERED: MIDAZOLAM HCL 1 MG/ML 2ML VIAL ONE (10:08)
[2020-01-01] MEDS ORDERED: LARYING-O-JET KIT (LTA) ONE (10:13)
[2020-01-01] MEDS ORDERED: SUCCINYLCHOLINE CHLORIDE 20 MG/ML 10 ML VIAL ONE (10:13)
[2020-01-01] MEDS ORDERED: DexMEDEtomidine HCL IV 100 MCG/ML VIAL ONE (10:16)
[2020-01-01] MEDS ORDERED: BUPIVACAINE 0.5 % 5 MG/1 ML MPF 30ML VIAL ONE (10:27)
--- NOTE | 2020-01-01 10:43 | History & Physical Bridge Note ---
Date of Service January 01, 2020 History & Physical Bridge Note I have examined the patient, reviewed the History & Physical and in the interval since the performance of the History & Physical I have noted the following changes of clinical significance: no changes noted
[2020-01-01] MEDS ORDERED: CONRAY 60% 50 ML VIAL ONE (10:56)
[2020-01-01] MEDS ORDERED: ONDANSETRON INJ 2 MG/ML 2 ML VIAL IV PRN (11:00)
[2020-01-01] MEDS ORDERED: PROMETHAZINE HCL 12.5 MG in SODIUM CHLORIDE 0.9% 50 ML IV PRN ×2 (11:00→14:06)
[2020-01-01] MEDS ORDERED: ePHEDrine sulfate 50 MG/ML AMP IV PRN (11:00)
[2020-01-01] MEDS ORDERED: ATROPINE SULFATE 0.1 MG/ML 10ML SYR IV PRN (11:00)
[2020-01-01] MEDS ORDERED: fentaNYL citrate 100 MCG/2 ML VIAL IV PRN (11:00)
[2020-01-01] MEDS ORDERED: HYDROmorphone INJ 1 MG/ML SYRINGE IV PRN (11:00)
[2020-01-01] MEDS ORDERED: ePHEDrine sulfate 50 MG/ML SYR ONE (12:27)
[2020-01-01] MEDS ORDERED: ROCURONIUM BROMIDE 10 MG/ML 5 ML VIAL ONE (12:27)
[2020-01-01] MEDS ORDERED: ACETAMINOPHEN 1,000 MG/100 ML VIAL IV STA (12:42)
--- NOTE | 2020-01-01 12:42 | Post Operative Brief Note ---
PG Immediate Post Op with CF Date of Surgery January 01, 2020 Pre & Post Diagnosis Operation Date: 01/01/20 07:00 Pre-Op Diagnosis: Cholelithiasis, cholecystitis Post-Op Diagnosis: Cholelithiasis, cholecystitis- acute and chronic I identified the patient and participated in the time-out.: Yes Procedure Operation Date: 01/01/20 07:00 Actual Procedures p Laparoscopic Cholecystectomy(Not Applicable) - Giovanni Davis MD, FACS Surgeon Giovanni Davis MD, FACS Deli Manager Ailyn Glynn Estimated Blood Loss 20 Findings Consistent with Post-Op Diagnosis Specimens Specimen Description: Permanent: A. Gallbladder and contents Drains Bk-Zhao Drain (15F Round)
--- NOTE | 2020-01-01 12:59 | Operative Report (OR) ---
DATE OF OPERATION: 01/01/2020 NAME OF OPERATION: Laparoscopic cholecystectomy. PREOPERATIVE DIAGNOSIS: Acute cholecystitis. POSTOPERATIVE DIAGNOSIS: Acute cholecystitis with chronic cholecystitis. STAFF SURGEON: Giovanni Davis MD. ERP IMPLEMENTATION CONSULTANT: Kathryn Glynn PA-C. ANESTHESIA: General. DESCRIPTION OF PROCEDURE: The patient was brought in the operating room and placed on the operating table in supine position. His abdomen was prepped and draped in usual fashion. My business support assistant helped with prepping, draping, removal of the gallbladder and closure of the wounds. 0.5% plain Marcaine was used to anesthetize all incisions. Incision was made just above the umbilicus, carrying dissection down into the abdomen, placing a Veress needle, producing pneumoperitoneum. An 11 mm port was placed at this level and then under visualization, three 5 mm ports were placed, 1 cephalad and 2 laterally. Gallbladder was grasped and retracted. It was acutely inflamed. There were adhesions to the gallbladder. These were taken down bluntly and sharply. There was significant inflammation at the casa hepatis. Dissection was carried out identifying the cystic duct and cystic artery. These were clipped and transected. The gallbladder was extremely friable. We did have some bile and stone spillage, which was irrigated and aspirated. The gallbladder was dissected away from the liver bed consistent with acute and chronic cholecystitis. Gallbladder was placed in an Endobag. The subhepatic space and surrounding area were irrigated and aspirated. A 15 round Bk-Zhao drain placed through the lateral 5 mm port site into the subhepatic space, secured to the skin using 3-0 nylon suture. It was placed to suction bulb. All ports were removed. The pneumoperitoneum was reduced. The fascia at the umbilicus was closed using 0 PDS suture. Skin was reapproximated using 5-0 Prolene suture. The patient was transferred to recovery room in stable condition. I attest to the content of the Intraoperative Record and any orders documented therein. Any exception s are noted below.
--- NOTE | 2020-01-01 13:42 | Anesthesiology Progress Note ---
Date of Service January 01, 2020 Anesthesia Post Procedure Vital Signs Vital Signs: Temp Pulse Pulse Pulse Resp BP BP 01/01/20 13:35 64 16 124/73 01/01/20 13:25 59 L 14 126/80 01/01/20 13:18 36.1 C L 59 L 23 131/80 01/01/20 10:26 37.4 C 64 18 125/91 01/01/20 08:00 36.8 C 72 18 133/82 12/31/19 23:16 36.7 C 66 18 132/77 12/31/19 15:43 36.7 C 66 18 135/84 12/31/19 14:59 66 18 132/86 12/31/19 14:43 66 18 132/86 Pulse Ox 01/01/20 13:35 96 01/01/20 13:25 96 01/01/20 13:18 97 01/01/20 10:26 96 01/01/20 08:00 97 12/31/19 23:16 96 12/31/19 15:43 97 12/31/19 14:59 97 12/31/19 14:43 97 Pain Intensity Abdomen: Pain Intensity: 4 Transfer of Care Handoff Completed per policy Notes Mental Status: alert / awake / arousable and participated in evaluation Patient Amnestic to Procedure: Yes Nausea / Vomiting: adequately controlled Pain: adequately controlled Airway Patency, RR, SpO2: stable & adequate BP & HR: stable & adequate Hydration State: stable & adequate Anesthetic Complications: no major complications apparent and Pt Satisfied with anesthetic care
[2020-01-01] MEDS ORDERED: PROMETHAZINE HCL 25 MG in SODIUM CHLORIDE 0.9% 50 ML IV PRN (14:06)
[2020-01-01] MEDS ORDERED: MoRPHine SULFATE 2 MG/ML CARP IV PRN (14:06)
[2020-01-01] MEDS ORDERED: HYDROCODONE/ACETAMOPHEN 5/325MG TAB PO PRN (14:06)
[2020-01-01] MEDS: SODIUM CHLORIDE 0.9% 1000ML 1,000 ML IV SCH (14:30)
[2020-01-01] MEDS: HYDROCODONE/ACETAMOPHEN 5/325MG TAB PO PRN ×2 (17:33→23:54)
--- NOTE | 2020-01-01 17:43 | Hospitalist Progress Note ---
Date of Service January 01, 2020 Assessment & Plan (1) Acute and chronic cholecystitis: Presented with acutely worsening on chronic RUQ abd pain. Chronic pain for 5 years, then had acute RUQ abd pain, abnormal LFTs, post-prandial symptoms, and gall bladder u/s findings consistent with acute calculous cholecystitis Started on IV cefoxitin Now s/p lap ralph by Surgery on 12/31 Doing very well -on reg diet -continue pain control, bowel regimen, IVFs -continue abx -post-op management as per Surgery -f/u pathology (2) Cholelithiasis: as above (3) Abnormal LFTs: See discussion above. I believe abnormal LFTs are likely due to acute cholecystitis. Trending downward after likely passage of stone on day of admission Acute hepatitis profile is pending Hep B neg, Hep A and C pending -ok to restart Cymbalta (4) Neuropathy: restart cymbalta (5) DVT prophylaxis: SCDs Dispo-much improved, needs continued stay for recovery from cholecystectomy, then back to group home Admission and Anticipated Discharge Date Admission Date: December 31, 2019 Subjective Pt feeling so much better since cholecystectomy today. Reports the constant nagging pain he has had for the last 5 years is now gone. He tolerated a regular diet and denies nausea. No chest pain or SOB. No headache. Is making urine. No flatus or BM yet. Review of Systems Review of Systems: All systems reviewed & are unremarkable except as noted in HPI & below Physical Exam Constitutional: WD/WN, vitals as above Eyes: + anicteric sclerae ENMT: external ear and nose normal, oropharynx normal Neck: trachea midline, no thyromegaly Respiratory: normal respiratory effort, lungs clear to auscultation Cardiovascular: RRR, no murmur, no edema Chest (Breasts): Chest: normal inspection of chest Gastrointestinal (Abdomen): Inspection/Auscultation: normal bowel sounds; + abdomen abnormal to inspection (dressings in place on abd are c/d/i) and abdomen not distended Percussion/Palpation: abdomen soft; abdomen nontender and no guarding Musculoskeletal: Extremities: extremities normal to inspection; no cyanosis and no clubbing Skin: no rashes, warm and dry Neurologic: moves all extremities and awake; no focal motor deficits Psychiatric: A+Ox3, euthymic affect Lymphatic: no lymphedema Results & Data Results & Data ([facility]) Vital Signs (Past 12 Hours) Vital Signs Temp Pulse Pulse Pulse Resp BP Pulse Ox 01/01/20 17:37 36.7 C 86 18 122/81 93 01/01/20 15:48 36.4 C L 57 L 16 135/81 95 01/01/20 14:50 36.5 C 75 18 118/73 94 01/01/20 14:20 36.5 C 62 16 124/74 95 01/01/20 14:05 36.6 C 61 18 124/74 95 01/01/20 13:50 36.8 C 65 19 122/73 95 01/01/20 13:35 64 16 124/73 96 01/01/20 13:25 59 L 14 126/80 96 01/01/20 13:18 36.1 C L 59 L 23 131/80 97 01/01/20 10:26 37.4 C 64 18 125/91 96 01/01/20 08:00 36.8 C 72 18 133/82 97 Laboratory Results 01/01/20 01/01/20 12/31/19 Range/Units 04:26 04:26 17:45 WBC 7.14 (4.8-10.8) K/uL RBC 4.29 L (4.7-6.1) M/uL Hgb 13.5 L (14.0-18.0) g/dL Hct 39.4 L (42-52) % MCV 91.8 (80-100) fL MCH 31.5 (25-34) pg MCHC 34.3 (32-36) g/dL RDW Std Deviation 43.6 (36.4-46.3) fL RDW Coeff of Mc 13.1 (11.5-14.5) % Plt Count 152 (130-400) K/uL MPV 10.7 H (7.4-10.4) fL Immature Gran % (Auto) 0.3 % Neut % (Auto) 71.2 % Lymph % (Auto) 13.7 % [place] % (Auto) 11.1 % Eos % (Auto) 3.6 % Baso % (Auto) 0.1 % Immature Gran # (Auto) 0.02 (0.00-0.02) K/uL Neut # (Auto) 5.08 (1.4-6.5) K/uL Lymph # (Auto) 0.98 L (1.2-3.4) K/uL [place] # (Auto) 0.79 H (0.11-0.59) K/uL Eos # (Auto) 0.26 (0-0.5) K/uL Baso # (Auto) 0.01 (0-0.2) K/uL Sodium 140 (136-145) mmol/L Potassium 4.3 (3.5-5.1) mmol/L Chloride 110 H (98-107) mmol/L Carbon Dioxide 25 (21-32) mmol/L Anion Gap 5.0 (3-11) BUN 11 (7-18) mg/dl Creatinine 0.91 (0.6-1.4) mg/dl Est Cr Clr Drug Dosing 98.8 ml/min Est GFR ( Amer) 106.5 Est GFR (Non-Af Amer) 91.9 BUN/Creatinine Ratio 12.0 (10-20) Glucose 103 H (70-99) mg/dl Calcium 8.5 (8.5-10.1) mg/dl Total Bilirubin 0.7 (0.2-1) mg/dl AST 29 (15-37) U/L ALT 79 H (12-78) U/L Alkaline Phosphatase 55 (45-117) U/L Total Protein 6.3 L D (6.4-8.2) gm/dl Albumin 2.7 L (3.4-5.0) gm/dl Globulin 3.6 (2.5-4.0) gm/dl Albumin/Globulin Ratio 0.8 L (0.9-2) Nasal Screen MRSA (PCR) Negative (Negative) PG Care Time/CCT Total # of Minutes Spent Total Time Spent with Patient: Total time spent is greater than 50% in coord ination of care (as documented) at patient's floor/unit and/or counseling patient: Coding Level of Care Code 84207 Subseq Hosp Care Lvl 2 Diagnoses Acute and chronic cholecystitis K81.2 Cholelithiasis K80.20 Abnormal LFTs R94.5 Neuropathy G62.9 DVT prophylaxis Z29.9
[2020-01-01] MEDS: DOCUSATE SODIUM/SENNA 50/8.6MG TAB PO SCH (21:15)
[2020-01-02 02:55] LABS: Hepatitis A Antibody IgM NON-REACTIVE (NON-REACTIVE); Hepatitis B Core Antibody IgM NON-REACTIVE (NON-REACTIVE)
[2020-01-02] MEDS: SODIUM CHLORIDE 0.9% 1000ML 1,000 ML IV SCH (03:09)
[2020-01-02 05:49] LABS: Basophils # (auto) 0.01 K/uL (0-0.2); Basophils % (auto) 0.1 %; Eosinophils # (auto) 0.03 K/uL (0-0.5); Eosinophils % (auto) 0.4 %; Hematocrit (blood only) 38.4 % (42-52); Hemoglobin 13.3 g/dL (14.0-18.0); Immature Granulocytes # (auto) 0.02 K/uL (0.00-0.02); Immature Granulocytes % (auto) 0.2 %; Lymphocytes # (auto) 0.94 K/uL (1.2-3.4); Lymphocytes % (auto) 11.2 %; Mean Corpuscular Hemoglobin 31.9 pg (25-34); Mean Corpuscular Hgb Conc 34.6 g/dL (32-36); Mean Corpuscular Volume 92.1 fL (80-100); Mean Platelet Volume 10.9 fL (7.4-10.4); Monocytes % (auto) 9.5 %; Neutrophils # (auto) 6.62 K/uL (1.4-6.5); Neutrophils % (auto) 78.6 %; Platelet Count 164 K/uL (130-400); RDW Coefficient of Variation 12.9 % (11.5-14.5); RDW Standard Deviation 43.5 fL (36.4-46.3); Red Blood Count 4.17 M/uL (4.7-6.1); White Blood Count 8.42 K/uL (4.8-10.8)
[2020-01-02 06:17] LABS: Albumin Level 2.7 gm/dl (3.4-5.0); Bilirubin Direct 0.2 mg/dl (0-0.2); Calcium 8.4 mg/dl (8.5-10.1); Creatinine Clr Calc Pharmacy 86.2 ml/min; Est GFR (African American) 91.1; Est GFR (Non-African American) 78.6; Potassium 4.4 mmol/L (3.5-5.1)
[2020-01-02 06:20] LABS: Albumin Globulin Ratio 0.7 (0.9-2); Bilirubin,Total 0.6 mg/dl (0.2-1); Globulin 3.7 gm/dl (2.5-4.0); Phosphorus 3.3 mg/dl (2.5-4.9); Total Protein 6.4 gm/dl (6.4-8.2)
--- NOTE | 2020-01-02 07:14 | Surgery Progress Note ---
Date of Service January 02, 2020 Assessment & Plan (1) Status post laparoscopic cholecystectomy: Patient is status post laparoscopic cholecystectomy with lysis of adhesions He had a significant acute and chronic inflammation with chronic adhesions Advance diet and activity Continue IV antibiotics for now, will discharge on Cipro Leave drain until Tuesday or next Tuesday Likely discharge tomorrow Results & Data Vital Signs (Past 12 Hours) Vital Signs Temp Pulse Resp BP Pulse Ox 01/02/20 07:09 36.5 C 59 L 16 127/75 95 01/01/20 23:00 36.8 C 85 19 126/80 93 PG Care Time/CCT Total # of Minutes Spent Total Time Spent with Patient: Total time spent is greater than 50% in coordina tion of care (as documented) at patient's floor/unit and/or counseling patient: Coding Level of Care Code None Diagnoses Status post laparoscopic cholecystectomy Z90.49
[2020-01-02] MEDS: DOCUSATE SODIUM/SENNA 50/8.6MG TAB PO SCH ×2 (07:34→21:40)
[2020-01-02] MEDS: DULOXETINE HCL 60 MG CAP PO SCH (07:34)
[2020-01-02] MEDS: MAGNESIUM HYDROXIDE SUSP 30 ML UDC PO SCH ×2 (09:18→21:40)
--- NOTE | 2020-01-02 16:43 | Hospitalist Progress Note ---
Date of Service January 02, 2020 Assessment & Plan (1) Acute and chronic cholecystitis: Presented with acutely worsening on chronic RUQ abd pain. Chronic pain for 5 years, then had acute RUQ abd pain, abnormal LFTs, post-prandial symptoms, and gall bladder u/s findings consistent with acute calculous cholecystitis Now s/p lap ralph by Surgery on 12/31, doing very well post-op RASHAUN drain remains in place -on reg diet and tolerating well, passing flatus, no BM yet -continue pain control, bowel regimen, can dc IVFs -continue abx with Cefoxitin -post-op management as per Surgery -f/u pathology -continued stay (2) Cholelithiasis: as above (3) Abnormal LFTs: See discussion above. I believe abnormal LFTs are likely due to acute calculous cholecystitis Acute hepatitis profile is negative LFs all normal now (4) Neuropathy: Continue cymbalta (5) DVT prophylaxis: SCDs Dispo-much improved, needs continued stay for recovery from cholecystectomy, then back to skilled nursing likely tomorrow Admission and Anticipated Discharge Date Admission Date: January 01, 2020 Subjective Pt reports feeling great today. He is eating regular food, no abd pain except occasionally at incision and RASHAUN drain sites. No nausea. He is passing flatus but no BM. He ambulated in the halls today. Denies chest pain or SOB Review of Systems Review of Systems: All systems reviewed & are unremarkable except as noted in HPI & below Physical Exam Constitutional: WD/WN, vitals as above Eyes: + anicteric sclerae Neck: trachea midline, no thyromegaly Respiratory: normal respiratory effort, lungs clear to auscultation Cardiovascular: RRR, no murmur, no edema Chest (Breasts): Chest: normal inspection of chest Gastrointestinal (Abdomen): Inspection/Auscultation: normal bowel sounds; + abdomen abnormal to inspection (dressings in place on abd are c/d/i,RASHAUN drain with serosang drainage) and abdomen not distended Percussion/Palpation: abdomen soft; abdomen nontender and no guarding Musculoskeletal: Extremities: extremities normal to inspection; no cyanosis and no clubbing Skin: no rashes, warm and dry Neurologic: moves all extremities and awake; no focal motor deficits Psychiatric: A+Ox3, euthymic affect Lymphatic: no lymphedema Results & Data Results & Data ([facility]) Vital Signs (Past 12 Hours) Vital Signs Temp Pulse Pulse Resp BP Pulse Ox 01/02/20 15:10 36.7 C 69 16 127/79 93 01/02/20 07:09 36.5 C 59 L 16 127/75 95 Laboratory Results 01/02/20 01/02/20 12/31/19 Range/Units 05:33 05:33 11:20 WBC 8.42 (4.8-10.8) K/uL RBC 4.17 L (4.7-6.1) M/uL Hgb 13.3 L (14.0-18.0) g/dL Hct 38.4 L (42-52) % MCV 92.1 (80-100) fL MCH 31.9 (25-34) pg MCHC 34.6 (32-36) g/dL RDW Std Deviation 43.5 (36.4-46.3) fL RDW Coeff of Mc 12.9 (11.5-14.5) % Plt Count 164 (130-400) K/uL MPV 10.9 H (7.4-10.4) fL Immature Gran % (Auto) 0.2 % Neut % (Auto) 78.6 % Lymph % (Auto) 11.2 % [place] % (Auto) 9.5 % Eos % (Auto) 0.4 % Baso % (Auto) 0.1 % Immature Gran # (Auto) 0.02 (0.00-0.02) K/uL Neut # (Auto) 6.62 H (1.4-6.5) K/uL Lymph # (Auto) 0.94 L (1.2-3.4) K/uL [place] # (Auto) 0.80 H (0.11-0.59) K/uL Eos # (Auto) 0.03 (0-0.5) K/uL Baso # (Auto) 0.01 (0-0.2) K/uL Sodium 139 (136-145) mmol/L Potassium 4.4 (3.5-5.1) mmol/L Chloride 108 H (98-107) mmol/L Carbon Dioxide 26 (21-32) mmol/L Anion Gap 5.0 (3-11) BUN 9 (7-18) mg/dl Creatinine 1.03 (0.6-1.4) mg/dl Est Cr Clr Drug Dosing 86.2 ml/min Est GFR ( Amer) 91.1 Est GFR (Non-Af Amer) 78.6 BUN/Creatinine Ratio 9.0 L (10-20) Glucose 106 H (70-99) mg/dl Calcium 8.4 L (8.5-10.1) mg/dl Phosphorus 3.3 (2.5-4.9) mg/dl Total Bilirubin 0.6 (0.2-1) mg/dl Direct Bilirubin 0.2 (0-0.2) mg/dl AST 23 (15-37) U/L ALT 65 (12-78) U/L Alkaline Phosphatase 52 (45-117) U/L Total Protein 6.4 (6.4-8.2) gm/dl Albumin 2.7 L (3.4-5.0) gm/dl Globulin 3.7 (2.5-4.0) gm/dl Albumin/Globulin Ratio 0.7 L (0.9-2) Hepatitis A IgM Ab NON-REACTIVE (NON-REACTIVE) Hep B Core IgM Ab NON-REACTIVE (NON-REACTIVE) Hepatitis C Ab (EIA) NON-REACTIVE (NON-REACTIVE) Hep C Ab Signal/Cutoff 0.02 (<1.00) PG Care Time/CCT Total # of Minutes Spent Total Time Spent with Patient: Total time spent is greater than 50% in coordination of care (as documented) at patient's floor/unit and/or counseling patient: Coding Level of Care Code 34365 Subseq Hosp Care Lvl 2 Diagnoses Acute and chronic cholecystitis K81.2 Cholelithiasis K80.20 Abnormal LFTs R94.5 Neuropathy G62.9 DVT prophylaxis Z29.9
[2020-01-03] MEDS: DULOXETINE HCL 60 MG CAP PO SCH (07:37)
[2020-01-03] MEDS: MAGNESIUM HYDROXIDE SUSP 30 ML UDC PO SCH (07:37)
[2020-01-03] MEDS: DOCUSATE SODIUM/SENNA 50/8.6MG TAB PO SCH (07:37)
--- NOTE | 2020-01-03 07:37 | Surgery Progress Note ---
Date of Service January 03, 2020 Assessment & Plan (1) Status post laparoscopic cholecystectomy: Patient is doing well tolerating his diet He did very his tape burn and we are now using paper tape His abdomen is soft Drainage is serous [facility] He should continue on ciprofloxacin for 5 days and I suspect the present will determine what pain medication who he will receive We will remove the drain on Tuesday in our office Results & Data Vital Signs (Past 12 Hours) Vital Signs Temp Pulse Resp BP Pulse Ox 01/02/20 23:30 36.7 C 69 18 130/81 96 PG Care Time/CCT Total # of Minutes Spent Total Time Spent with Patient: Total time spent is greater than 50% in coordination of care (as documented) at patient's floor/unit and/or counseling patient: Coding Level of Care Code None Diagnoses Status post laparoscopic cholecystectomy Z90.49
--- NOTE | 2020-01-03 13:38 | Discharge Summary ---
Date of Service January 03, 2020 Admission HPI Per Admitting Provider 59yo male - [facility] inmate - with h/o kidney stones and neuropathy who presents with 1 week of RUQ and epigastric abdominal pain. Initially pain was intermittent and occasionally post-prandial. Pain in the last 24 hours is now constant. Had 1 episode of nonbilious emesis a few days ago. He has been able to continue eating although this makes the pain worse. Some pain has radiated to the flank on the right and back. No chest pain. No dyspnea or cough. No diarrhea. No blood per rectum. Denies fevers, chills or myalgias or obvious sick contacts. Principal Diagnosis Acute on chronic cholecystitis Discharge Exam Constitutional WD/WN, vitals as above Eyes + anicteric sclerae Neck trachea midline, no thyromegaly Respiratory normal respiratory effort, lungs clear to auscultation Cardiovascular RRR, no murmur, no edema Chest (Breasts) Chest: normal inspection of chest Gastrointestinal (Abdomen) Inspection/Auscultation: normal bowel sounds; + abdomen abnormal to inspection (dressings in place on abd are c/d/i,RASHAUN drain with serosang drainage) and abdomen not distended Percussion/Palpation: abdomen soft; abdomen nontender and no guarding Musculoskeletal Extremities: extremities normal to inspection; no cyanosis and no clubbing Skin no rashes, warm and dry Neurologic moves all extremities and awake; no focal motor deficits Psychiatric A+Ox3, euthymic affect Lymphatic no lymphedema Discharge Data Allergies Allergy/AdvReac Type Severity Reaction Status Date / Time No Known Allergies Allergy Unverified 12/31/19 13:03 Consultations 12/31/19 13:56 ED Decision to Admit Stat 12/31/19 15:43 Consult General Surgery Routine Procedures Performed Operation Date: 01/01/20 07:00 Actual Procedures p Laparoscopic Cholecystectomy(Not Applicable) - Giovanni Davis MD, FACS Ordered Studies 12/31/19 11:10 CT abd pelvis IV con only Stat 12/31/19 13:56 US gallbladder Stat CXR Hospital Course (1) Acute and chronic cholecystitis: Presented with acutely worsening on chronic RUQ abd pain. Chronic pain for 5 years, then had acute RUQ abd pain, abnormal LFTs, post-prandial symptoms, and gall bladder u/s findings consistent with acute calculous cholecystitis Now s/p lap ralph by Surgery on 12/31, doing very well post-op RASHAUN drain remains in place and will be removed by Surgery on Tuesday next week in office -on reg diet and tolerating well, passing flatus, no BM yet -continue pain control with tylenol -continue abx but convert IV Cefoxitin to po Cipro x 5 more days -f/u pathology Stable for dc to care home Discussed his care with Dr. Kirkpatrick from [facility] (2) Cholelithiasis: as above (3) Abnormal LFTs: See discussion above. I believe abnormal LFTs are likely due to acute calculous cholecystitis Acute hepatitis profile is negative LFTs all normal now (4) Neuropathy: Continue cymbalta (5) DVT prophylaxis: SCDs Dispo-much improved, back to care home today Total Time Total Time Spent Total Time Spent (In Minutes): 35 min Total Time Includes: Examination of the Patient, Discharge Planning and Medication Reconciliation Discharge Plan Discharge Items [facility] Reason For Visit: RUQ ABD PAIN,ABNORMAL LFTS Discharge Diagnosis: acute/ chronic cholecystitis Condition on Discharge: Good Activity: As commented below Activity Comment: light activity for 3 weeks Lifting: No more than 10 pounds Bathing Comment: may shower Exercise Comment: wait 3 weeks Driving/Machine Use: Resume 3 days after discharge Non-emergency contact: Primary Care Provider and Surgeon Call non-emergency contact if: your pain is not controlled, your temperature is above 101 and your wound has increased drainage [facility] - Diet: Regular Addtl Attending Provider Instructions: Please take Cipro x 5 more days. Tylenol as needed for pain control. SPECIAL CARE INSTRUCTIONS: * Cover incisions and change daily for comfort/drainage. * Empty drain 1-2 times per day and record * May use ibuprofen for pain as tolerated. * Expect some swelling and bruising. Call your doctor if: * Temperature above 101 degrees * Pain not relieved by pain medicine ordered * There is increased drainage or redness from any incision * You have any unanswered questions or concerns [phone]. FOLLOW UP VISIT: If not already scheduled, please call the office for a follow-up visit. OFFICE PHONE NUMBER: Dr. Davis Office for 01/06- drain, suture removal Pending Studies at Discharge: No Stand-Alone Forms: My [facility] Skilled Items Patient informed of condition?: Yes Discharge Level of Care: Other Communicable Disease: No Discharge Prognosis: Improving Lines: None Urinary Catheter: No Medications and DC Order Prescriptions: New ciprofloxacin HCl [Cipro] 500 mg tablet 500 mg PO BID Qty: 10 RF: 0 Continued duloxetine [Cymbalta] 60 mg Capsule,Delayed Release(Dr/Ec) 60 mg PO DAILY RF: 0 Discharge Orders: Discharge Order (Routine); Ordered 01/03/20 Ordered By: Darling Desai Admission Data Admit Date/Time: 01/01/20 18:03 Attending Provider: Darling Desai Admit Provider: Darling Desai Primary Care Provider: Dell AMEZQUITA Other Providers: Donnie Craig ; Giovanni Davis Coding Level of Care Code D/C Day Management >30 mins Diagnoses Acute and chronic cholecystitis K81.2 Cholelithiasis K80.20 Abnormal LFTs R94.5 Neuropathy G62.9 DVT prophylaxis Z29.9
== END 2020-01-03 15:50 | DRG 419 ==
LOC: 2W 10:55 → ED 10:55 → SUATTDRO 13:56 → 2W 14:59